=== PATIENT | male | born 1970 | race Caucasian/White ===

== ENCOUNTER 2019-08-08 17:55 | Emergency (ER) | payer OTHER ==
[2019-08-08] MEDS ORDERED: Ibuprofen 600 MG Tab PO ONE (18:24)
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
[2019-08-08] MEDS ORDERED: Acetaminophen/HYDROcodone 325-5 MG Tab PO ONE (18:58)
== END 2019-08-08 19:20 | disposition home or self-care (01) ==
LOC: FB.ED 17:55
DX: S01.511A Laceration without foreign body of lip, initial encounter (principal); V43.52XA Car driver injured in collision with other type car in traffic accident, initial encounter; Y92.410 Unspecified street and highway as the place of occurrence of the external cause
CPT/HCPCS: 12011; 99283; A9270